=== PATIENT | female | born 1980 | race Caucasian/White ===

== ENCOUNTER → 2020-08-12 | Outpatient (CLI) | payer BC ==
[~2020-08-12] MED LIST: progesterone PO
[2020-08-12 13:41] LABS: BASOPHILS % (AUTO) 1 % (0-1); EOSINOPHILS % (AUTO) 1 % (1-7); LYMPHOCYTES % (AUTO) 23 % (22-44); MD NO; MEAN CORPUSCULAR HEMOGLOBIN 27.1 pg (27.0-34.8); MEAN CORPUSCULAR HGB CONC 32.6 g/dL (32.4-35.8); MEAN PLATELET VOLUME 7.8 fL (7.4-10.4); MONOCYTES % (AUTO) 5 % (2-9); NEUTROPHILS % (AUTO) 70 % (42-75); PLATELET COUNT 320 x10^3/uL (130-400); RED BLOOD COUNT 4.92 x10^6/uL (3.82-5.3); RED CELL DISTRIBUTION WIDTH 15.7 % (9.6-15.2)
[2020-08-12 13:53] LABS: ANION GAP 6 mmol/L (5-15); CALCIUM 8.9 mg/dL (8.5-10.1); CHLORIDE 107 mmol/L (98-107); CREATININE 0.57 mg/dL (0.55-1.02)
== END | disposition home or self-care (01) ==
LOC: STAR 12:32
PROVIDERS: ATTEND Obstetrics & Gynecology
DX: Z01.818 Encounter for other preprocedural examination (principal); N93.9 Abnormal uterine and vaginal bleeding, unspecified; N80.0 Endometriosis of uterus; N94.6 Dysmenorrhea, unspecified; Z20.822 Contact with and (suspected) exposure to COVID-19
CPT/HCPCS: 36415; 80048; 84703; 85025; 93005; U0003; U0005

== ENCOUNTER 2020-08-18 13:08 | Day surgery (SDC) | payer BC, OTHER ==
[~2020-08-18] VITALS: Ht 162.6 cm; Wt 98.0 kg
[~2020-08-18 13:08] MED LIST changes: +BUPIVACAINE/PF 0.25% ONE; +INDIGO CARMINE 0.8%, 5ML ONE
[2020-08-18] MEDS ORDERED: MIDAZOLAM 1 MG/ML, 2ML ONE (13:09)
[2020-08-18] MEDS ORDERED: FENTANYL PF 250 MCG/5ML ONE ×4 (13:09→16:16)
[2020-08-18] MEDS ORDERED: CEFAZOLIN 1,000 MG ONE (13:10)
[2020-08-18] MEDS ORDERED: NEOSTIGMINE 1 MG/ML, 10ML ONE (13:10)
[2020-08-18] MEDS ORDERED: ROCURONIUM 10MG/ML,5ML ONE ×2 (13:10→16:32)
[2020-08-18] MEDS ORDERED: GLYCOPYRROLATE 0.2MG/1ML, 5ML ONE (13:10)
[2020-08-18] MEDS ORDERED: ONDANSETRON 2MG/ML, 2ML ONE (13:10)
[2020-08-18] MEDS ORDERED: PROPOFOL 10 MG/ML, 20ML ONE (13:10)
[2020-08-18] MEDS ORDERED: DEXAMETHASONE 4 MG/ML, 1ML ONE (13:10)
[2020-08-18] MEDS ORDERED: CHLORHEXIDINE 15 ML UDC PO ONE (13:30)
[2020-08-18] MEDS ORDERED: LACTATED RINGERS 1,000 ML IV SCH (13:30)
[2020-08-18 14:05] LABS: HCG UR SG 1.015 (1.003-1.030)
[2020-08-18] MEDS ORDERED: SCOPOLAMINE 1MG PATCH TD ONE (14:36)
[2020-08-18] MEDS ORDERED: HYDROmorphone 1 MG/ML, 1ML INJ IVPush PRN (15:00)
[2020-08-18] MEDS ORDERED: LABETALOL 5MG/ML, 20ML IV PRN (15:00)
[2020-08-18] MEDS ORDERED: ACETAMINOPHEN 325 MG TABLET PO PRN (15:00)
[2020-08-18] MEDS ORDERED: PROMETHAZINE 25 MG/ML, 1ML IVPush PRN (15:00)
[2020-08-18] MEDS ORDERED: FENTANYL PF 100 MCG/2ML IV PRN (15:00)
[2020-08-18] MEDS ORDERED: OXYcodone 5 MG/5 ML ORAL.SOL UDC PO PRN (15:00)
[2020-08-18] MEDS ORDERED: hydrALAzine 20 MG/ML, 1ML IV PRN (15:00)
[2020-08-18] MEDS ORDERED: morphine SULFATE 10 MG/ML, 1ML IVPush PRN (15:00)
[2020-08-18] MEDS ORDERED: HALOPERIDOL 5 MG/ML IV PRN (15:00)
[2020-08-18] MEDS ORDERED: MEPERIDINE/PF 25MG/0.5ML IVPush PRN (15:00)
[2020-08-18] MEDS ORDERED: BUPIVACAINE/PF-EPI 0.25% 1:200K INFIL ONE (15:37)
[2020-08-18] MEDS ORDERED: SUGAMMADEX 200 MG/2 ML IVPush ONE (17:17)
[2020-08-18] MEDS ORDERED: MEPERIDINE/PF 25MG/ML,1ML ONE (18:04)
== END 2020-08-18 21:15 | disposition home or self-care (01) ==
LOC: OUT 13:08
PROVIDERS: ATTEND Obstetrics & Gynecology
DX: N93.9 Abnormal uterine and vaginal bleeding, unspecified (principal); N94.6 Dysmenorrhea, unspecified; N80.0 Endometriosis of uterus; N80.1 Endometriosis of ovary; N80.3 Endometriosis of pelvic peritoneum; N83.02 Follicular cyst of left ovary; N83.01 Follicular cyst of right ovary; N73.6 Female pelvic peritoneal adhesions (postinfective); N30.10 Interstitial cystitis (chronic) without hematuria; Z79.899 Other long term (current) drug therapy; Z98.890 Other specified postprocedural states
CPT/HCPCS: 58552; 81025; 88307; J0690; J1100; J2175; J2250; J2405; J2704; J2710; J3010

== ENCOUNTER 2020-08-26 14:06 | Inpatient (IN) | payer BC, OTHER ==
[~2020-08-26] VITALS: Ht 162.6 cm; Wt 110.3 kg
[~2020-08-26 14:06] MED LIST changes: -BUPIVACAINE/PF 0.25% ONE; -INDIGO CARMINE 0.8%, 5ML ONE
--- NOTE | 2020-08-26 14:58 | NUR ---
AMBULATORY TO ROOM FROM [facility] C STEADY GAIT.
[2020-08-26] MEDS ORDERED: SODIUM CHLORIDE 0.9% 1,000ML IVBOLUS ONE (16:00)
[2020-08-26] MEDS ORDERED: ONDANSETRON 2MG/ML, 2ML IVPush ONE (16:00)
[2020-08-26] MEDS ORDERED: HYDROmorphone 1 MG/ML, 1ML INJ IV ONE (16:00)
[2020-08-26] MEDS ORDERED: ONDANSETRON 2MG/ML, 2ML ONE (16:04)
[2020-08-26] MEDS ORDERED: HYDROmorphone 2 MG/ML, 1ML ONE (16:04)
--- NOTE | 2020-08-26 16:08 | NUR ---
IV ACCESS ESTABLISHED. PT MEDICATED PER MAY. PT URINE AND BLOOD TUBED TO LAB AT THIS TIME.
[2020-08-26 16:22] LABS: MICROSCOPIC AUTO
[2020-08-26 16:26] LABS: BASOPHILS % (AUTO) 0 % (0-1); EOSINOPHILS % (AUTO) 0 % (1-7); LYMPHOCYTES % (AUTO) 6 % (22-44); MEAN CORPUSCULAR HEMOGLOBIN 27.8 pg (27.0-34.8); MEAN CORPUSCULAR HGB CONC 33.3 g/dL (32.4-35.8); MEAN PLATELET VOLUME 7.8 fL (7.4-10.4); MONOCYTES % (AUTO) 5 % (2-9); NEUTROPHILS % (AUTO) 89 % (42-75); PLATELET COUNT 369 x10^3/uL (130-400); RED BLOOD COUNT 4.73 x10^6/uL (3.82-5.3); RED CELL DISTRIBUTION WIDTH 15.8 % (9.6-15.2)
[2020-08-26 16:28] LABS: ALBUMIN 3.4 g/dL (3.4-5.0); ANION GAP 8 mmol/L (5-15); CHLORIDE 103 mmol/L (98-107)
[2020-08-26 16:32] LABS: ALANINE AMINOTRANSFERASE 19 U/L (12-78); ALKALINE PHOSPHATASE 86 U/L (45-117); BILIRUBIN,TOTAL 0.9 mg/dL (0.2-1.0); CREATININE 1.03 mg/dL (0.55-1.02)
--- NOTE | 2020-08-26 16:56 | NUR ---
pt to ct via [facility] [place] at this time.
--- NOTE | 2020-08-26 17:05 | NUR ---
pt back from ct at this time.
[2020-08-26] MEDS ORDERED: OMNIPAQUE 350 MG/ML, 100ML BOTTLE ONE (17:07)
--- NOTE | 2020-08-26 17:18 | NUR ---
BREAK RN: PT BACK FROM CT. VS STABLE. NO ACUTE DISTRESS NOTED. FAMILY AT BEDSIDE. CALL LIGHT IN PLACE. WILL CONTINUE TO MONITOR.
--- NOTE | 2020-08-26 17:47 | NUR ---
REPORT GIVEN TO JULIA VALENZUELA
--- NOTE | 2020-08-26 18:39 | NUR ---
PT AMBULATES TO RESTROOM AT THIS TIME WITH STEADY GAIT.
[2020-08-26] MEDS ORDERED: METRONIDAZOLE PMX 500MG/100ML 100 ML IV ONE (19:00)
[2020-08-26] MEDS ORDERED: CEFOTETAN PMX 2GM/50ML 50 ML IVPB ONE (19:00)
[2020-08-26] MEDS ORDERED: METRONIDAZOLE PMX 500MG/100ML 100 ML ONE (19:25)
--- NOTE | 2020-08-26 19:28 | NUR ---
PT MEDICATED PER MAY. PT VSS AND UPDATED IN EMR.
[2020-08-26] MEDS ORDERED: PHARMACY MAY ADJ FOR RENAL FX MC PRN (20:30)
[2020-08-26] MEDS ORDERED: LABETALOL 5MG/ML, 20ML IVPush PRN (20:30)
[2020-08-26 20:33] VITALS: BP 111/71
[2020-08-26] MEDS: LACTATED RINGERS 1,000 ML IV SCH (21:00)
[2020-08-26] MEDS: morphine SULFATE 10 MG/ML, 1ML IV PRN (23:45)
[2020-08-27 00:13] LABS: INTERNATIONAL NORMALIZED RATIO 1.05 (0.93-1.1); PROTHROMBIN TIME 11.2 Seconds (9.6-11.5)
[2020-08-27] MEDS: METRONIDAZOLE PMX 500MG/100ML 100 ML IV SCH ×4 (00:42→19:33)
[2020-08-27 03:32] VITALS: BP 123/76
[2020-08-27 05:49] LABS: BASOPHILS % (AUTO) 0 % (0-1); EOSINOPHILS % (AUTO) 0 % (1-7); LYMPHOCYTES % (AUTO) 6 % (22-44); MEAN CORPUSCULAR HEMOGLOBIN 27.4 pg (27.0-34.8); MEAN PLATELET VOLUME 7.9 fL (7.4-10.4); MONOCYTES % (AUTO) 6 % (2-9); NEUTROPHILS % (AUTO) 88 % (42-75); PLATELET COUNT 329 x10^3/uL (130-400); RED BLOOD COUNT 4.32 x10^6/uL (3.82-5.3); RED CELL DISTRIBUTION WIDTH 16.4 % (9.6-15.2)
[2020-08-27 06:00] LABS: ANION GAP 8 mmol/L (5-15); CALCIUM 8.4 mg/dL (8.5-10.1); CHLORIDE 108 mmol/L (98-107)
[2020-08-27 06:03] LABS: CREATININE 0.67 mg/dL (0.55-1.02)
[2020-08-27 07:34] VITALS: BP 111/72
[2020-08-27] MEDS: SENNA/DOCUSATE TABLET PO SCH (09:00)
[2020-08-27] MEDS: CEFOTETAN PMX 2GM/50ML 50 ML IV SCH ×2 (09:43→20:50)
[2020-08-27] MEDS: morphine SULFATE 10 MG/ML, 1ML IV PRN ×2 (10:00→13:15)
[2020-08-27 13:10] VITALS: BP 108/68
[2020-08-27] MEDS: LACTATED RINGERS 1,000 ML IV SCH (13:25)
[2020-08-27] MEDS ORDERED: OMNIPAQUE 350 MG/ML, 50 ML BOTTLE ONE (13:53)
[2020-08-27] MEDS ORDERED: MIDAZOLAM 1 MG/ML, 2ML ONE (14:01)
[2020-08-27] MEDS ORDERED: FENTANYL PF 100 MCG/2ML ONE ×3 (14:01→16:13)
[2020-08-27] MEDS ORDERED: LIDOCAINE-MPF 2% ,5ML ONE (14:02)
[2020-08-27] MEDS ORDERED: LABETALOL 5MG/ML, 20ML IV PRN (14:30)
[2020-08-27] MEDS ORDERED: hydrALAzine 20 MG/ML, 1ML IV PRN (14:30)
[2020-08-27] MEDS ORDERED: ACETAMINOPHEN 325 MG TABLET PO PRN (14:30)
[2020-08-27] MEDS ORDERED: ONDANSETRON 2MG/ML, 2ML IVPush PRN (14:30)
[2020-08-27] MEDS ORDERED: OXYcodone 5 MG/5 ML ORAL.SOL UDC PO PRN (14:30)
[2020-08-27] MEDS ORDERED: PROMETHAZINE 25 MG/ML, 1ML IVPush PRN (14:30)
[2020-08-27] MEDS ORDERED: FENTANYL PF 100 MCG/2ML IV PRN (14:30)
[2020-08-27] MEDS ORDERED: EPHEDRINE 50 MG/ML, 1ML IVPush PRN (14:30)
[2020-08-27] MEDS ORDERED: HYDROmorphone 1 MG/ML, 1ML INJ IVPush PRN (14:30)
[2020-08-27 14:31] LABS: HCT (SEDRATE) 33.5 % (34.6-47.8)
[2020-08-27] MEDS ORDERED: DEXAMETHASONE 4 MG/ML, 5ML ONE (15:08)
[2020-08-27] MEDS ORDERED: ROCURONIUM 10MG/ML,5ML ONE (15:09)
[2020-08-27] MEDS ORDERED: ONDANSETRON 2MG/ML, 2ML ONE (15:09)
[2020-08-27] MEDS ORDERED: SUCCINYLCHOLINE 20 MG/ML, 10ML ONE (15:09)
[2020-08-27] MEDS ORDERED: PROPOFOL 10 MG/ML, 20ML ONE (15:09)
[2020-08-27] MEDS ORDERED: PHENYLEPHRINE 10 MG/ML ONE (15:17)
[2020-08-27] MEDS ORDERED: HYDROmorphone 1 MG/ML, 1ML INJ ONE (15:20)
[2020-08-27] MEDS ORDERED: LIDOCAINE 1%, 20ML ONE (16:13)
[2020-08-27] MEDS ORDERED: MIDAZOLAM 1 MG/ML, 5ML ONE (16:13)
[2020-08-27] MEDS ORDERED: FLUMAZENIL 0.1 MG/1 ML, 5ML ONE (16:13)
[2020-08-27] MEDS ORDERED: NALOXONE 1 MG/ML, 2ML ONE (16:13)
[2020-08-27] MEDS ORDERED: VISIPAQUE 270 MG/ML, 50ML BOTTLE ONE (17:00)
[2020-08-27 20:52] VITALS: BP 118/77
[2020-08-28 00:34] VITALS: BP 106/64
[2020-08-28] MEDS: METRONIDAZOLE PMX 500MG/100ML 100 ML IV SCH ×2 (00:37→07:24)
[2020-08-28] MEDS: LACTATED RINGERS 1,000 ML IV SCH ×2 (01:56→16:48)
[2020-08-28] MEDS: morphine SULFATE 10 MG/ML, 1ML IV PRN ×3 (02:02→20:28)
[2020-08-28 06:10] LABS: BASOPHILS % (AUTO) 0 % (0-1); EOSINOPHILS % (AUTO) 0 % (1-7); LYMPHOCYTES % (AUTO) 4 % (22-44); MEAN CORPUSCULAR HGB CONC 32.9 g/dL (32.4-35.8); MEAN PLATELET VOLUME 7.7 fL (7.4-10.4); MONOCYTES % (AUTO) 4 % (2-9); NEUTROPHILS % (AUTO) 92 % (42-75); PLATELET COUNT 327 x10^3/uL (130-400)
[2020-08-28 06:19] LABS: ANION GAP 10 mmol/L (5-15); CALCIUM 8.3 mg/dL (8.5-10.1); CHLORIDE 109 mmol/L (98-107); CREATININE 0.48 mg/dL (0.55-1.02)
[2020-08-28 06:45] VITALS: BP 117/76
[2020-08-28] MEDS: PIPERACILLIN/TAZO 3.375 GM in DEXTROSE 5% 50 ML IVPB SCH ×2 (09:17→16:48)
[2020-08-28] MEDS: SENNA/DOCUSATE TABLET PO SCH (09:18)
[2020-08-28] MEDS: SODIUM CHLORIDE 0.9% IVPB SCH (09:18)
[2020-08-28] MEDS: DAPTOMYCIN IVPB SCH (09:18)
[2020-08-28] MEDS ORDERED: POTASSIUM CHLORIDE 20 MEQ TAB.ER.PRT PO ONE (10:00)
[2020-08-28 13:43] VITALS: BP 117/76
[2020-08-28 19:07] VITALS: BP 105/66
[2020-08-29 00:25] VITALS: BP 114/57
[2020-08-29] MEDS: PIPERACILLIN/TAZO 3.375 GM in DEXTROSE 5% 50 ML IVPB SCH ×2 (01:32→08:29)
[2020-08-29 05:18] LABS: BASOPHILS % (AUTO) 0 % (0-1); EOSINOPHILS % (AUTO) 0 % (1-7); LYMPHOCYTES % (AUTO) 14 % (22-44); MEAN CORPUSCULAR HEMOGLOBIN 27.7 pg (27.0-34.8); MEAN CORPUSCULAR HGB CONC 33.7 g/dL (32.4-35.8); MEAN PLATELET VOLUME 7.5 fL (7.4-10.4); MONOCYTES % (AUTO) 4 % (2-9); NEUTROPHILS % (AUTO) 81 % (42-75); PLATELET COUNT 392 x10^3/uL (130-400); RED BLOOD COUNT 3.78 x10^6/uL (3.82-5.3); RED CELL DISTRIBUTION WIDTH 16.2 % (9.6-15.2)
[2020-08-29 05:26] LABS: ANION GAP 6 mmol/L (5-15); CALCIUM 7.9 mg/dL (8.5-10.1); CHLORIDE 110 mmol/L (98-107); CREATININE 0.38 mg/dL (0.55-1.02)
[2020-08-29 07:01] VITALS: BP 108/71
[2020-08-29] MEDS: LACTATED RINGERS 1,000 ML IV SCH (07:03)
[2020-08-29] MEDS: SENNA/DOCUSATE TABLET PO SCH (08:30)
[2020-08-29] MEDS: DAPTOMYCIN IVPB SCH (09:29)
[2020-08-29] MEDS: SODIUM CHLORIDE 0.9% IVPB SCH (09:29)
[2020-08-29 14:02] VITALS: BP 109/74
[2020-08-29] MEDS ORDERED: POTASSIUM CHLORIDE 20 MEQ TAB.ER.PRT PO ONE (14:30)
[2020-08-29 19:47] VITALS: BP 136/82
[2020-08-29] MEDS: ONDANSETRON 2MG/ML, 2ML IVPush PRN (23:13)
[2020-08-30 00:45] VITALS: BP 128/76
[2020-08-30 05:17] LABS: BASOPHILS % (AUTO) 1 % (0-1); EOSINOPHILS % (AUTO) 1 % (1-7); LYMPHOCYTES % (AUTO) 19 % (22-44); MEAN CORPUSCULAR HEMOGLOBIN 27.2 pg (27.0-34.8); MEAN CORPUSCULAR HGB CONC 33.1 g/dL (32.4-35.8); MEAN PLATELET VOLUME 7.3 fL (7.4-10.4); MONOCYTES % (AUTO) 6 % (2-9); NEUTROPHILS % (AUTO) 74 % (42-75); PLATELET COUNT 443 x10^3/uL (130-400); RED BLOOD COUNT 3.98 x10^6/uL (3.82-5.3); RED CELL DISTRIBUTION WIDTH 16.3 % (9.6-15.2)
[2020-08-30] MEDS: LACTATED RINGERS 1,000 ML IV SCH (05:27)
[2020-08-30 05:28] LABS: ANION GAP 8 mmol/L (5-15); CALCIUM 8.6 mg/dL (8.5-10.1); CHLORIDE 109 mmol/L (98-107)
[2020-08-30 05:29] LABS: CREATININE 0.38 mg/dL (0.55-1.02)
[2020-08-30] MEDS: ONDANSETRON 2MG/ML, 2ML IVPush PRN (06:01)
[2020-08-30 06:42] VITALS: BP 138/88
[2020-08-30] MEDS ORDERED: POTASSIUM CHLORIDE 20 MEQ TAB.ER.PRT PO ONE (07:30)
[2020-08-30] MEDS: SENNA/DOCUSATE TABLET PO SCH (09:00)
[2020-08-30] MEDS: SODIUM CHLORIDE 0.9% IVPB SCH (10:01)
[2020-08-30] MEDS: DAPTOMYCIN IVPB SCH (10:01)
[2020-08-30] MEDS ORDERED: LINE600T15 PO (13:32)
[2020-08-30 14:09] VITALS: BP 134/84
[2020-08-30] MEDS ORDERED: LINEZOLID 600 MG TABLET PO SCH (21:00)
== END 2020-08-30 17:53 | disposition home or self-care (01) | DRG 854 ==
LOC: ED 16:51 → UNDOADMIN 20:32 → EDIP 20:32 → 3N 20:33
PROVIDERS: ADMIT Family Medicine; ATTEND Family Medicine
PROC: BT141ZZ Fluoroscopy of Kidneys, Ureters and Bladder using Low Osmolar Contrast (ICD-10-PCS; principal; 2020-08-27 14:00)
PROC: 0TJB8ZZ Inspection of Bladder, Via Natural or Artificial Opening Endoscopic (ICD-10-PCS; 2020-08-27 14:00)
PROC: 0T778DZ Dilation of Left Ureter with Intraluminal Device, Via Natural or Artificial Opening Endoscopic (ICD-10-PCS; 2020-08-28)
PROC: 0T9130Z Drainage of Left Kidney with Drainage Device, Percutaneous Approach (ICD-10-PCS; 2020-08-28)
DX: A41.9 Sepsis, unspecified organism (principal); N13.6 Pyonephrosis; Z68.41 Body mass index [BMI] 40.0-44.9, adult; N36.8 Other specified disorders of urethra; Z20.822 Contact with and (suspected) exposure to COVID-19; B95.2 Enterococcus as the cause of diseases classified elsewhere; E66.9 Obesity, unspecified; K59.00 Constipation, unspecified; S30.0XXA Contusion of lower back and pelvis, initial encounter; Y83.8 Other surgical procedures as the cause of abnormal reaction of the patient, or of later complication, without mention of misadventure at the time of the procedure; Y82.8 Other medical devices associated with adverse incidents; N73.9 Female pelvic inflammatory disease, unspecified; N80.0 Endometriosis of uterus; Z79.2 Long term (current) use of antibiotics; Z90.710 Acquired absence of both cervix and uterus; Z93.6 Other artificial openings of urinary tract status; Z98.891 History of uterine scar from previous surgery; Z90.722 Acquired absence of ovaries, bilateral; Y92.89 Other specified places as the place of occurrence of the external cause
CPT/HCPCS: 36415; 50432; 74420; 84145; 96374; 96375; 99285; J3490; 50695; 74174; 74177; 76942; 80048; 80053; 81001; 82550; 83690; 83735; 85025; 85610; 85651; 85730; 86140; 87040; 87077; 87086; 87186; 87635; 99156; 99157; C1894; G0378; J0878; J1100; J1170; J2250; J2405; J2543; J2704; J3010; Q9966; Q9967; C1729; C1751; C1769; C2625; J0330; J2270; J2310; J2370; J7030; J7120

== ENCOUNTER 2020-09-06 07:38 | Day surgery (SDC) | payer BC ==
[~2020-09-06 07:38] MED LIST changes: +LINE600T15 PO
[2020-09-06] MEDS ORDERED: FENTANYL PF 100 MCG/2ML ONE (09:26)
== END 2020-09-06 23:59 | disposition home or self-care (01) ==
LOC: RAD 07:38
PROVIDERS: ATTEND Urology
DX: Z43.6 Encounter for attention to other artificial openings of urinary tract (principal); N28.89 Other specified disorders of kidney and ureter; Z72.89 Other problems related to lifestyle; Z79.899 Other long term (current) drug therapy
CPT/HCPCS: 50389; 51600; 74455; C1769; J3010; Q9958; 74430

== ENCOUNTER → 2020-10-17 | Outpatient (CLI) | payer BC ==
[~2020-10-17] MED LIST changes: +OMNIPAQUE 350 MG/ML, 150 ML BOTTLE ONE
== END | disposition home or self-care (01) ==
LOC: CFH 14:50
PROVIDERS: ATTEND Physician Assistant
DX: S37.10XA Unspecified injury of ureter, initial encounter (principal); K76.0 Fatty (change of) liver, not elsewhere classified; K44.9 Diaphragmatic hernia without obstruction or gangrene; N83.201 Unspecified ovarian cyst, right side; X58.XXXA Exposure to other specified factors, initial encounter; Y93.89 Activity, other specified; Y92.89 Other specified places as the place of occurrence of the external cause; Y99.8 Other external cause status
CPT/HCPCS: 74178; Q9967